=== PATIENT | male | born 1950 | race Caucasian/White ===

== ENCOUNTER 2016-07-22 13:46 | Emergency (ER) | payer MEDICARE ==
--- NOTE | ~2016-07-22 | EKG ---
PATIENT: GEOVANY PETERSON UNIT #: [id number] Ventricular Rate: 84 BPM Atrial Rate: 84 BPM P-R Interval: 144 ms QRS Duration: 80 ms Q-T Interval: 358 ms QTC Calculation(Bezet): 423 ms P [place]: 87 degrees Calculated R [place]: 77 degrees Calculated T [place]den: 52 degrees Diagnosis Line: Sinus rhythm with Premature atrial complexes Diagnosis Line: Otherwise normal ECG Diagnosis Line: When compared with ECG of 10-JUL-2016 16:30, Diagnosis Line: Premature atrial complexes are now Present Diagnosis Line: Nonspecific T wave abnormality now evident in Diagnosis Line: Inferior leads Diagnosis Line: Confirmed by ZEN COTTO MD ([id number]) on 07/23/2016 Diagnosis Line: 7:27:08 PM INTERPRETING MD: KIRTI ESPARZA
--- NOTE | ~2016-07-22 | CR72 ---
[facility] A Service of [facility] & [facility] RADIOLOGY TEXT RESULTS PATIENT: GEOVANY PETERSON LOCATION: [facility] : 46 UNIT #: [id number] AGE: [address]: Deep Bonner MD SEX: M ORDER DR: [id number] [facility] [address] [place], [place] [address] [id number] E MR#: [id number] Acc #: [id number] NAME: GEOVANY PETERSON. : 1950 SEX: M STUDY DATE/TIME: 07/22/2016 13:43 UNIT: [facility] ROOM: STUDY DESCRIPTION: CR Chest Single View Portable Attending Physician: Deep Bonner M.D. Ordering Physician: Deep Bonner M.D. Primary Care Physician: Coni Oveido A.P.R.N. MEDICAL IMAGING REPORT This report is preliminary unless electronic signature is present EXAM Portable chest, 07/22/2016. HISTORY Cough, shortness of air, and left-sided chest pain for 2 days. History of emphysema. FINDINGS AP portable view of the chest is compared to 07/10/2016. Cardiac and mediastinal contours are stable. The lungs are emphysematous, but clear. No pneumothorax. IMPRESSION Emphysema. No active disease. No change from prior. Dictated by... Brigido Okeefe Jr., M.D. THIS IS AN ELECTRONICALLY VERIFIED REPORT Brigido Okeefe Jr., M.D. at 07/23/2016 8:11 AM PALOMA/cory TD: 07/22/2016 14:42 JOB #: [id number] MEDICAL IMAGING REPORT COPY
[~2016-07-22 13:46] MED LIST: ALBUTEROL17 GM INH; ASPIRIN EC81 M1 PO; ATIVAN0.5 M1 PO; DOXYCYCLINE150 MG PO; IMDUR-ER60 M1 PO; INCRUSE ELLI62.5 MCG INH; LIPITOR40 MG PO; METOPROLOL TAR25 MG PO; NITROGLYGERIN0.4 MG SL; PLAVIX300 MG PO; PREDNISONE10 MG/DOSE PO; SPIRIVA18 MCG INH; SYMBICORT INH; VENTOLIN5 MG/ML INH; ZESTRIL10 M2 PO
[2016-07-22 13:55] LABS: BASOPHIL# 0.1 X10e3 (0-0.3); BASOPHIL% 1.2 % (0-2.5); EOSINOPHIL# 0.6 X10e3 (0-0.7); EOSINOPHIL% 10.4 % (0.0-7.0); HEMATOCRIT 33.6 % (38.0-50.0); HEMOGLOBIN 10.9 gm/dL (13.0-16.0); LYMPHOCYTE# 0.7 X10e3 (1.0-3.5); LYMPHOCYTE% 12.9 % (17.0-45.0); MEAN CELL VOLUME 90.4 FL (83-96); MEAN CORPUSCULAR HEMOGLOBIN 29.3 PG (28-34); MEAN CORPUSCULAR HGB CONC 32.4 g/dL (30-36); MEAN PLATELET VOLUME 9.5 FL (6.5-11.5); MONOCYTE# 0.6 X10e3 (0-1.0); MONOCYTE% 10.8 % (3.0-12.0); NEUTROPHIL# 3.7 X10e3 (1.5-7.1); NEUTROPHIL% 64.7 % (40-75); PLATELET COUNT 185 X10e3 (140-420); RED BLOOD COUNT 3.71 X10e (3.90-5.60); RED CELL DISTRIBUTION WIDTH 14.8 % (11.0-15.5); WHITE BLOOD COUNT 5.7 X10e3 (4.0-10.5)
[2016-07-22 13:57] LABS: POC - TROPONIN <0.05 ng/mL (<=0.05)
[2016-07-22 14:03] LABS: DIFF IND NO
[2016-07-22 14:21] LABS: ALBUMIN SERUM 3.6 g/dL (3.5-5.0); ALKALINE PHOSPHATASE 67 U/L (32-92); ALT (SGPT) 14 U/L (10-40); AST (SGOT) 23 U/L (10-42); BILIRUBIN, DIRECT 0.1 mg/dL (0.0-0.2); BILIRUBIN,INDIRECT 0.5 mg/dL (0.0-0.9); BILIRUBIN,TOTAL 0.6 mg/dL (0.2-2.0); BLOOD UREA NITROGEN 5 mg/dL (9-23); BUN/CREATININE RATIO 8.33; CARBON DIOXIDE 33 mmol/L (22-31); CHLORIDE 91 mmol/L (100-111); CREATININE SERUM 0.6 mg/dL (0.6-1.4); GLOM FILT RATE Estimated ABOVE60 mL/min (>60); GLUCOSE FASTING 121 mg/dL (70-110); SODIUM 131 mmol/L (135-145)
== END 2016-07-22 17:25 | disposition home or self-care (01) ==
LOC: CED 13:46
PROVIDERS: Emergency Medicine
DX: J44.1 Chronic obstructive pulmonary disease with (acute) exacerbation (principal); Z98.890 Other specified postprocedural states; Z79.899 Other long term (current) drug therapy
CPT/HCPCS: 36415; 71010; 80048; 80076; 82553; 84484; 85025; 93005; 94640; 96374; 96375; 99284; J2270; J2930

== ENCOUNTER 2016-07-24 12:49 | Emergency (ER) | payer MEDICARE ==
--- NOTE | ~2016-07-24 | CR195 ---
[facility] A Service of [facility] & [facility] RADIOLOGY TEXT RESULTS PATIENT: GEOVANY PETERSON LOCATION: [facility] : 46 UNIT #: [id number] AGE: [address]: Teena Garcia MD SEX: M ORDER DR: [id number] [facility] [address] [place], [place] [address] [id number] E MR#: [id number] Acc #: [id number] NAME: GEOVANY PETERSON. : 1950 SEX: M STUDY DATE/TIME: 07/24/2016 16:17 UNIT: [facility] ROOM: STUDY DESCRIPTION: JOSE Neck Soft Tissue Attending Physician: Teena Garcia M.D. Ordering Physician: Teena Garcia M.D. Primary Care Physician: Coni Oviedo A.P.R.N. MEDICAL IMAGING REPORT This report is preliminary unless electronic signature is present EXAM 2 views neck soft tissue. INDICATIONS Shortness of breath and feeling like his throat is closing for the past 2 months. 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 This is probably most pronounced at C5-C6, there is no prevertebral soft tissue swelling, no radiopaque retained foreign bodies are seen and no aggressive osseous abnormalities are identified. Patient is noted to have carotid calcifications bilaterally and advanced bilateral emphysematous changes. IMPRESSION No acute findings. Dictated by... Luz Elena sAh M.D. THIS IS AN ELECTRONICALLY VERIFIED REPORT Luz Elena Ash M.D. at 07/25/2016 5:27 PM AFF/psc TD: 07/24/2016 20:22 JOB #: [id number] MEDICAL IMAGING REPORT COPY
--- NOTE | ~2016-07-24 | CR72 ---
[facility] A Service of [facility] & [facility] RADIOLOGY TEXT RESULTS PATIENT: GEOVANY PETERSON LOCATION: [facility] : 46 UNIT #: [id number] AGE: [address]: Teena Garcia MD SEX: M ORDER DR: [id number] [facility] [address] [place], [place] [address] [id number] E MR#: [id number] Acc #: [id number] NAME: GEOVANY PETERSON : 1950 SEX: M STUDY DATE/TIME: 07/24/2016 12:54 UNIT: [facility] ROOM: STUDY DESCRIPTION: CR Chest Single View Portable Attending Physician: Teena Garcia M.D. Ordering Physician: eTena Garcia M.D. Primary Care Physician: Coni Oviedo A.P.R.N. MEDICAL IMAGING REPORT This report is preliminary unless electronic signature is present EXAM Portable chest 07/24/2016 HISTORY Shortness of air and cough for 1 day. COMPARISON STUDIES 07/22/2016 A portable view of the chest was obtained. FINDINGS The heart size and vascularity are normal. The lungs are clear. The lungs are hyperinflated. The bones are unremarkable. IMPRESSION No active disease. Dictated by... Denton Pena M.D. THIS IS AN ELECTRONICALLY VERIFIED REPORT Denton Pena M.D. at 07/24/2016 4:36 PM William TD: 07/24/2016 15:22 JOB #: [id number] MEDICAL IMAGING REPORT COPY
--- NOTE | ~2016-07-24 | EKG ---
PATIENT: GEOVANY PETERSON UNIT #: [id number] Ventricular Rate: 70 BPM Atrial Rate: 70 BPM QRS Duration: 82 ms Q-T Interval: 384 ms QTC Calculation(Bezet): 414 ms Calculated R [place]: 68 degrees Calculated T [place]: 37 degrees Diagnosis Line: Sinus rhythm Diagnosis Line: Moderate voltage criteria for LVH, may be normal Diagnosis Line: variant Diagnosis Line: Abnormal ECG Diagnosis Line: When compared with ECG of 22-JUL-2016 13:33, Diagnosis Line: Junctional rhythm has replaced Sinus rhythm Diagnosis Line: Confirmed by KWAN MELGAR MD ([id number]) on 07/24/2016 Diagnosis Line: 6:27:02 PM INTERPRETING MD: RAMÓN ESPARZA
[2016-07-24 13:21] LABS: BASOPHIL% 0.8 % (0-2.5); EOSINOPHIL# 0.2 X10e3 (0-0.7); EOSINOPHIL% 3.5 % (0.0-7.0); HEMATOCRIT 30.4 % (38.0-50.0); HEMOGLOBIN 10.1 gm/dL (13.0-16.0); LYMPHOCYTE# 0.9 X10e3 (1.0-3.5); LYMPHOCYTE% 15.2 % (17.0-45.0); MEAN CELL VOLUME 89.3 FL (83-96); MEAN CORPUSCULAR HEMOGLOBIN 29.7 PG (28-34); MEAN CORPUSCULAR HGB CONC 33.3 g/dL (30-36); MEAN PLATELET VOLUME 9.2 FL (6.5-11.5); MONOCYTE# 0.7 X10e3 (0-1.0); MONOCYTE% 11.3 % (3.0-12.0); NEUTROPHIL# 4.2 X10e3 (1.5-7.1); NEUTROPHIL% 69.2 % (40-75); PLATELET COUNT 199 X10e3 (140-420); RED BLOOD COUNT 3.41 X10e (3.90-5.60); RED CELL DISTRIBUTION WIDTH 14.7 % (11.0-15.5); WHITE BLOOD COUNT 6.1 X10e3 (4.0-10.5)
[2016-07-24 13:24] LABS: DIFF IND NO
[2016-07-24 13:54] LABS: ALBUMIN SERUM 3.6 g/dL (3.5-5.0); ALKALINE PHOSPHATASE 61 U/L (32-92); ALT (SGPT) 14 U/L (10-40); AST (SGOT) 21 U/L (10-42); BILIRUBIN, DIRECT 0.1 mg/dL (0.0-0.2); BILIRUBIN,INDIRECT 0.4 mg/dL (0.0-0.9); BILIRUBIN,TOTAL 0.5 mg/dL (0.2-2.0); BLOOD UREA NITROGEN 8 mg/dL (9-23); CALCIUM SERUM 8.9 mg/dL (8.4-10.2); CARBON DIOXIDE 33 mmol/L (22-31); CHLORIDE 91 mmol/L (100-111); CREATININE SERUM 0.5 mg/dL (0.6-1.4); GLOM FILT RATE Estimated ABOVE60 mL/min (>60); GLUCOSE FASTING 100 mg/dL (70-110); POTASSIUM 3.9 mmol/L (3.5-5.1); PROTEIN TOTAL SERUM 6.6 g/dL (6.0-8.3); SODIUM 130 mmol/L (135-145)
[2016-07-24 13:56] LABS: INR 1.1; PARTIAL THROMBOPLASTIN TIME 28.7 SECONDS (23.5-31.3); PROTHROMBIN TIME (PATIENT) 11.2 SECONDS (9.6-11.5)
[2016-07-24 14:06] LABS: INFLUENZA A NEG (NEG); INFLUENZA B NEG (NEG)
[2016-07-24 15:15] LABS: POC - CKMB 1.4 ng/mL (0.0-7.9); POC - TROPONIN <0.05 ng/mL (<=0.05)
== END 2016-07-24 18:45 | disposition home or self-care (01) ==
LOC: CED 12:49
PROVIDERS: Student in an Organized Health Care Education/Training Program
DX: J44.9 Chronic obstructive pulmonary disease, unspecified (principal); F41.9 Anxiety disorder, unspecified; I25.10 Atherosclerotic heart disease of native coronary artery without angina pectoris; I10 Essential (primary) hypertension; Z79.899 Other long term (current) drug therapy
CPT/HCPCS: 36415; 70360; 71010; 80048; 80076; 82553; 83880; 84484; 85025; 85379; 85610; 85730; 87804; 93005; 94640; 96374; 99284; J2930

== ENCOUNTER 2016-08-19 15:45 | Emergency (ER) | payer MEDICARE ==
--- NOTE | ~2016-08-19 | CR72 ---
[facility] A Service of [facility] & [facility] RADIOLOGY TEXT RESULTS PATIENT: GEOVANY PETERSON LOCATION: [facility] : 46 UNIT #: [id number] AGE: [address]: Norma Darling MD SEX: M ORDER DR: [id number] [facility] [address] [place], [place] [address] [id number] E MR#: [id number] Acc #: [id number] NAME: GEOVANY PETERSON. : 1950 SEX: M STUDY DATE/TIME: 08/19/2016 19:05 UNIT: [facility] ROOM: STUDY DESCRIPTION: CR Chest Single View Portable Attending Physician: Norma Darling M.D. Ordering Physician: Norma Darling M.D. Primary Care Physician: Carly FernandezPMelisaRAbdoul MEDICAL IMAGING REPORT This report is preliminary unless electronic signature is present EXAM Portable chest HISTORY Left side chest pain today. Shortness of air. FINDINGS Mild hyperinflation of both lungs with probable bilateral emphysema. Cardiac size and pulmonary vascularity are within normal limits. Mild right upper thoracic curve. Mildly tortuous descending thoracic aorta. No focal airspace infiltrates or pleural effusions. IMPRESSION Emphysema. No acute findings. Dictated by... Jose Thompson M.D. THIS IS AN ELECTRONICALLY VERIFIED REPORT Jose Thompson M.D. at 08/20/2016 2:41 PM DFL/psc TD: 08/20/2016 00:49 JOB #: [id number] MEDICAL IMAGING REPORT Page 1 of 1 COPY
[2016-08-19 15:48] LABS: POC - TROPONIN <0.05 ng/mL (<=0.05)
[2016-08-19 16:01] LABS: BASOPHIL% 0.5 % (0-2.5); EOSINOPHIL# 0.1 X10e3 (0-0.7); EOSINOPHIL% 1.7 % (0.0-7.0); HEMATOCRIT 37.1 % (38.0-50.0); HEMOGLOBIN 11.9 gm/dL (13.0-16.0); LYMPHOCYTE# 0.6 X10e3 (1.0-3.5); MEAN CORPUSCULAR HEMOGLOBIN 29.1 PG (28-34); MEAN PLATELET VOLUME 9.8 FL (6.5-11.5); MONOCYTE# 0.8 X10e3 (0-1.0); MONOCYTE% 9.1 % (3.0-12.0); NEUTROPHIL# 7.2 X10e3 (1.5-7.1); NEUTROPHIL% 81.7 % (40-75); PLATELET COUNT 166 X10e3 (140-420); RED BLOOD COUNT 4.07 X10e (3.90-5.60); RED CELL DISTRIBUTION WIDTH 15.2 % (11.0-15.5); WHITE BLOOD COUNT 8.8 X10e3 (4.0-10.5)
[2016-08-19 16:07] LABS: DIFF IND NO
[2016-08-19 16:29] LABS: ALBUMIN SERUM 4.1 g/dL (3.5-5.0); BILIRUBIN, DIRECT 0.1 mg/dL (0.0-0.2); BILIRUBIN,INDIRECT 0.8 mg/dL (0.0-0.9); BILIRUBIN,TOTAL 0.9 mg/dL (0.2-2.0); BUN/CREATININE RATIO 12.5; CALCIUM SERUM 9.1 mg/dL (8.4-10.2); CREATININE SERUM 0.8 mg/dL (0.6-1.4); GLOM FILT RATE Estimated 91.8 mL/min (>60); POTASSIUM 3.9 mmol/L (3.5-5.1); PROTEIN TOTAL SERUM 7.5 g/dL (6.0-8.3)
[2016-08-19 17:58] LABS: INFLUENZA A NEG (NEG); INFLUENZA B NEG (NEG)
== END 2016-08-19 20:10 | disposition home or self-care (01) ==
LOC: CED 15:45
PROVIDERS: Emergency Medicine
DX: J44.1 Chronic obstructive pulmonary disease with (acute) exacerbation (principal); F17.200 Nicotine dependence, unspecified, uncomplicated
CPT/HCPCS: 36415; 71010; 80048; 80076; 82553; 84484; 85025; 87804; 94640; 96361; 96365; 96374; 96375; 99284; J1885; J2930; J3475

== ENCOUNTER 2016-08-29 08:58 | Emergency (ER) | payer MEDICARE ==
--- NOTE | ~2016-08-29 | EKG ---
PATIENT: GEOVANY PETERSON UNIT #: [id number] Ventricular Rate: 92 BPM Atrial Rate: 92 BPM P-R Interval: 126 ms QRS Duration: 78 ms Q-T Interval: 354 ms QTC Calculation(Bezet): 437 ms P [place]: 90 degrees Calculated R [place]: 75 degrees Calculated T [place]: 23 degrees Diagnosis Line: Normal sinus rhythm Diagnosis Line: Minimal voltage criteria for LVH, may be normal Diagnosis Line: variant Diagnosis Line: Borderline ECG Diagnosis Line: When compared with ECG of 24-JUL-2016 12:49, Diagnosis Line: No significant change was found Diagnosis Line: Confirmed by ZEN COTTO MD ([id number]) on 08/29/2016 Diagnosis Line: 7:22:06 PM INTERPRETING MD: KIRTI ESPARZA
--- NOTE | ~2016-08-29 | CR72 ---
[facility] A Service of [facility] & [facility] RADIOLOGY TEXT RESULTS PATIENT: GEOVANY PETERSON LOCATION: [facility] : 46 UNIT #: [id number] AGE: [address]: Jorge Chambers MD SEX: M ORDER DR: [id number] [facility] [address] [place], [place] [address] [id number] E MR#: [id number] Acc #: [id number] NAME: GEOVANY PETERSON : 1950 SEX: M STUDY DATE/TIME: 08/29/2016 9:01 UNIT: [facility] ROOM: STUDY DESCRIPTION: CR Chest Single View Portable Attending Physician: Jorge Chambers M.D. Ordering Physician: Jorge Chambers M.D. Primary Care Physician: Coni Oviedo A.P.R.N. MEDICAL IMAGING REPORT This report is preliminary unless electronic signature is present EXAM Portable chest x-ray, 08/29/2016 HISTORY Chest pain. Short of air. No injury. Smoker 30 years. FINDINGS AP radiographs of the chest are presented. Comparison 08/19/2016. Degenerative changes in the spine. The heart is normal in size. Lungs are hyperinflated consistent with underlying emphysema. No change in appearance from prior study. There is no evidence of acute pulmonary disease, pleural effusion or pneumothorax. No suspicious nodule. Dictated by... Titi Ghosh M.D. THIS IS AN ELECTRONICALLY VERIFIED REPORT Titi Ghosh M.D. at 08/29/2016 4:49 PM Maximus TD: 08/29/2016 10:16 JOB #: [id number] MEDICAL IMAGING REPORT Page 1 of 1 COPY
[2016-08-29 09:02] LABS: BASOPHIL# 0.1 X10e3 (0-0.3); BASOPHIL% 1.3 % (0-2.5); EOSINOPHIL# 0.6 X10e3 (0-0.7); EOSINOPHIL% 9.1 % (0.0-7.0); HEMATOCRIT 35.8 % (38.0-50.0); HEMOGLOBIN 11.6 gm/dL (13.0-16.0); LYMPHOCYTE# 0.9 X10e3 (1.0-3.5); LYMPHOCYTE% 14.7 % (17.0-45.0); MEAN CELL VOLUME 91.3 FL (83-96); MEAN CORPUSCULAR HEMOGLOBIN 29.6 PG (28-34); MEAN CORPUSCULAR HGB CONC 32.4 g/dL (30-36); MEAN PLATELET VOLUME 8.8 FL (6.5-11.5); MONOCYTE# 1.1 X10e3 (0-1.0); MONOCYTE% 17.5 % (3.0-12.0); NEUTROPHIL# 3.6 X10e3 (1.5-7.1); NEUTROPHIL% 57.4 % (40-75); PLATELET COUNT 297 X10e3 (140-420); RED BLOOD COUNT 3.92 X10e (3.90-5.60); RED CELL DISTRIBUTION WIDTH 15.2 % (11.0-15.5); WHITE BLOOD COUNT 6.3 X10e3 (4.0-10.5)
[2016-08-29 09:03] LABS: POC - CKMB 1.4 ng/mL (0.0-7.9); POC - TROPONIN <0.05 ng/mL (<=0.05)
[2016-08-29 09:09] LABS: DIFF IND NO
[2016-08-29 09:16] LABS: PARTIAL THROMBOPLASTIN TIME 28.4 SECONDS (23.5-31.3); PROTHROMBIN TIME (PATIENT) 10.7 SECONDS (9.6-11.5)
[2016-08-29 09:56] LABS: ALBUMIN SERUM 3.6 g/dL (3.5-5.0); ALKALINE PHOSPHATASE 58 U/L (32-92); ALT (SGPT) 15 U/L (10-40); AST (SGOT) 20 U/L (10-42); BILIRUBIN, DIRECT 0.1 mg/dL (0.0-0.2); BILIRUBIN,INDIRECT 0.4 mg/dL (0.0-0.9); BILIRUBIN,TOTAL 0.5 mg/dL (0.2-2.0); CALCIUM SERUM 8.8 mg/dL (8.4-10.2); CARBON DIOXIDE 36 mmol/L (22-31); CHLORIDE 93 mmol/L (100-111); CREATININE SERUM 0.3 mg/dL (0.6-1.4); GLOM FILT RATE Estimated 137.4 mL/min (>60); GLUCOSE FASTING 108 mg/dL (70-110); POTASSIUM 4.3 mmol/L (3.5-5.1); PROTEIN TOTAL SERUM 6.7 g/dL (6.0-8.3); SODIUM 133 mmol/L (135-145)
[2016-08-29 09:57] LABS: BLOOD UREA NITROGEN <5 mg/dL (9-23); BUN/CREATININE RATIO 16.66
[2016-08-29 10:58] LABS: POC - CKMB 1.5 ng/mL (0.0-7.9); POC - TROPONIN <0.05 ng/mL (<=0.05)
== END 2016-08-29 11:52 | disposition home or self-care (01) ==
LOC: CED 08:58
PROVIDERS: Emergency Medicine
DX: J44.9 Chronic obstructive pulmonary disease, unspecified (principal); I25.10 Atherosclerotic heart disease of native coronary artery without angina pectoris; Z87.891 Personal history of nicotine dependence
CPT/HCPCS: 36415; 71010; 80048; 80076; 82553; 83880; 84484; 85025; 85610; 85730; 93005; 94640; 96374; 99284; J2930